=== PATIENT | male | born 1965 | race Caucasian/White ===

== ENCOUNTER 2021-07-19 06:29 | Emergency (ER) | payer OTHER ==
[2021-07-19] MEDS ORDERED: KETOROLAC TROMETHAMINE 30 MG/1 ML VIAL IM ONE (08:48)
[2021-07-19 08:50] VITALS: TEMP 98.3; BMI 25.8
[2021-07-19 10:59] VITALS: BP 110/70; PULSE 80
== END 2021-07-19 10:31 | disposition home or self-care (01) ==
LOC: JER 06:29
PROC: 3E0233Z Introduction of Anti-inflammatory into Muscle, Percutaneous Approach (ICD-10-PCS; principal; 2021-07-19)
DX: M25.561 Pain in right knee (principal)
CPT/HCPCS: 73562-TC-RT-FY; 73700-TC-RT; 96372; 99284-25